=== PATIENT | male | born 1955 | race Caucasian/White ===

== ENCOUNTER → 2024-01-12 06:38 | Outpatient (REF) | payer MEDICARE, OTHER, SELFPAY | LOC: MRI 3T 06:38 | PROVIDERS: ATTENDING PHYSICIAN Orthopaedic Surgery; FAMILY PHYSICIAN Physician Assistant Medical | DX: M25.511 Pain in right shoulder (principal) | CPT/HCPCS: 73221 ==

== ENCOUNTER → 2024-01-26 12:45 | Outpatient (REF) | payer MEDICARE, OTHER, SELFPAY ==
[2024-01-26 13:05] VITALS: BP 135/82; BP_SYST 68
[2024-01-26 14:03] VITALS: BP 137/83; BP_SYST 66
== END ==
LOC: RADI 12:45
PROVIDERS: ATTENDING PHYSICIAN Orthopaedic Surgery; FAMILY PHYSICIAN Physician Assistant Medical
DX: S43.431A Superior glenoid labrum lesion of right shoulder, initial encounter (principal); M25.511 Pain in right shoulder
CPT/HCPCS: 20610; 76942; 77002

== ENCOUNTER → 2024-04-23 06:26 | Day surgery (SDC) | payer MEDICARE, OTHER, SELFPAY ==
[2024-04-23 08:06] LABS: Glucose - Point of Care 83 mg/dl (70-99)
== END ==
LOC: GI 06:26
PROVIDERS: ATTENDING PHYSICIAN Specialist
DX: Z12.11 Encounter for screening for malignant neoplasm of colon (principal); D12.2 Benign neoplasm of ascending colon; K63.5 Polyp of colon; K57.30 Diverticulosis of large intestine without perforation or abscess without bleeding
CPT/HCPCS: 45380; 88305; 82962

== ENCOUNTER → 2025-11-10 14:24 | Outpatient (REF) | payer MEDICARE, OTHER, SELFPAY | LOC: RCS 14:24 | PROVIDERS: ATTENDING PHYSICIAN Physician Assistant Medical | DX: N48.6 Induration penis plastica (principal); Z01.818 Encounter for other preprocedural examination | CPT/HCPCS: 93005 ==